=== PATIENT | male | born 1965 | race Caucasian/White ===

== ENCOUNTER 2016-05-03 14:30 | Inpatient (IN) | payer OTHER ==
[2016-05-03 17:50] VITALS: BMI 31.3
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
[2016-05-03] MEDS ORDERED: ACETAMINOPHEN 325 MG TABLET (FP) PO PRN (18:44)
[2016-05-03] MEDS ORDERED: diazePAM 5 MG TABLET PO ONE (18:44)
[2016-05-03] MEDS ORDERED: P-EPHED 60MG/TRIPROLIDI 2.5MG TABLET PO PRN (18:44)
[2016-05-03] MEDS ORDERED: diphenhydrAMINE HCL 50 MG CAPSULE PO PRN (18:44)
[2016-05-03] MEDS ORDERED: guaiFENesin/D-METHORPHAN HB 10 ML UNIT-DOSE CUPS PO PRN (18:44)
[2016-05-03] MEDS ORDERED: LOPERAMIDE HCL 2 MG CAPSULE PO PRN (18:44)
[2016-05-03] MEDS ORDERED: MENTHOL/PHENOL 1 EACH UD MM PRN (18:44)
[2016-05-03] MEDS ORDERED: METHADONE HCL 10 MG TABLET (FOR DETOX USE ONLY) PO ONE ×2 (18:44→23:00)
[2016-05-03] MEDS ORDERED: MAG HYDROX/AL HYDROX/SIMETH 30 ML UNIT-DOSE CUP PO PRN (18:44)
[2016-05-03] MEDS ORDERED: MAGNESIUM CITRATE 300 ML BOTTLE PO PRN (18:44)
[2016-05-03] MEDS ORDERED: MAGNESIUM HYDROX 2400MG/30ML ORAL SUSPENSION 30 ML CUP PO PRN (18:44)
[2016-05-03] MEDS ORDERED: IBUPROFEN 400 MG TABLET (FP) PO PRN (18:44)
[2016-05-03] MEDS ORDERED: ONDANSETRON *ODT* 4 MG TABLET SL PRN (18:49)
[2016-05-03] MEDS ORDERED: ALBUTEROL SO4 6.7 GM HFA INHALER IH PRN (18:51)
[2016-05-03] MEDS: THIAMINE HCL 100 MG TABLET (FP) PO SCH (22:27)
[2016-05-03] MEDS: diazePAM 5 MG TABLET PO SCH (22:27)
[2016-05-03 23:03] LABS: URINE APPEARANCE CLEAR; URINE BILIRUBIN NEGATIVE (NEGATIVE); URINE BLOOD NEGATIVE (NEGATIVE); URINE COLOR YELLOW; URINE GLUCOSE (UA) NEGATIVE (NEGATIVE); URINE KETONE NEGATIVE (NEGATIVE); URINE LEUK ESTERASE NEGATIVE (NEGATIVE); URINE NITRITE NEGATIVE (NEGATIVE); URINE PROTEIN NEGATIVE (NEGATIVE); URINE UROBILINOGEN NEGATIVE E.U./dl (0.2-1.0)
[2016-05-04] MEDS: diazePAM 5 MG TABLET PO SCH ×3 (06:36→22:12)
--- NOTE | 2016-05-04 09:36 | PN ---
[facility] CIWA - CIWA Score Nausea/Vomitin Muscle Tremors: 3 Anxiety: 3 Agitation: 2 Paroxysmal Sweats: 1-Minimal Palms Moist Orientation: 0-Oriented Tacttile Disturbances: 1-Very Mild Itch/Numbness Auditory Disturbances: 1-Very Mild Visual Disturbances: 1-Very Mild Sensitivity Headache: 2-Mild CIWA-Ar Total Score: 17 [facility] COWS - Scale Resting Pulse: 0= [place] 80 or Below Sweatin=Flushed/Facial Moisture Restless Observation: 3= Extraneous Movement Pupil Size: 1= Pupils >than Normal Bone or Joint Aches: 2= Severe Diffuse Aches Runny Nose/ Eye Tearin= Runny Nose/Eyes GI Upset > 30mins: 2= Nausea/Diarrhea Tremor Observation of Outstretched Hands: 2= Slight Tremor Visible Yawning Observation: 1= 1-2x During Session Anxiety or Irritability: 2=Irritable/Anxious Goose Flesh Skin: 0=Smooth Skin COWS Score: 17 [facility] Progress Note (SOAP) Subjective: ALERT,IRRITABLE,ANXIOUS,PAIN IN THE BODY,JOINT AND BACK,TREMOR Objective: 05/04/16 09:34 Vital Signs Temperature 98.2 F 05/04/16 09:31 Pulse Rate 72 05/04/16 09:31 Respiratory Rate 20 05/04/16 09:31 Blood Pressure 151/93 05/04/16 09:31 O2 Sat by Pulse Oximetry (%) EKG NSR,NORMAL ECG Laboratory Last Values Urine Color Yellow 05/03/16 22:00 Urine Appearance Clear 05/03/16 22:00 Urine pH 6.0 (5.0-8.0) 05/03/16 22:00 Ur Specific [place] 1.024 (1.001-1.035) 05/03/16 22:00 Urine Protein Negative (NEGATIVE) 05/03/16 22:00 Urine Glucose (UA) Negative (NEGATIVE) 05/03/16 22:00 Urine Ketones Negative (NEGATIVE) 05/03/16 22:00 Urine Blood Negative (NEGATIVE) 05/03/16 22:00 Urine Nitrite Negative (NEGATIVE) 05/03/16 22:00 Urine Bilirubin Negative (NEGATIVE) 05/03/16 22:00 Urine Urobilinogen Negative E.U./dl (0.2-1.0) 05/03/16 22:00 Ur Leukocyte Esterase Negative (NEGATIVE) 05/03/16 22:00 LABS PENDING Assessment: 05/04/16 09:35 WITHDRAWAL SYMPTOM Plan: CONTINUE DETOX
[2016-05-04] MEDS ORDERED: METHADONE HCL 10 MG TABLET (FOR DETOX USE ONLY) PO SCH (10:00)
[2016-05-04] MEDS: NICOTINE 14 MG/24 HOURS TOPICAL PATCH TD SCH (10:19)
[2016-05-04] MEDS: diazePAM 5 MG TABLET PO PRN (10:19)
[2016-05-04] MEDS: PRENATAL VITAMINS W/ FOLIC ACID TABLET (FP) PO SCH (10:19)
[2016-05-04 11:17] LABS: MCH 31.3 pg (25.7-33.7); MCHC 33.3 g/dl (32.0-35.9); MEAN CELL VOLUME 93.8 fl (80-96); MEAN PLT VOLUME 9.8 fl (7.5-11.1); PLATELET COUNT 170 K/MM3 (134-434); RDW 13.8 % (11.9-15.9); WHITE BLOOD COUNT 5.6 K/mm3 (4.0-10.0)
[2016-05-04 11:32] LABS: ALBUMIN 3.5 g/dl (3.4-5.0); ANION GAP 4 (8-16); CALCIUM 8.7 mg/dL (8.5-10.1); CO2 28 mmol/L (21-32); GLUCOSE,RANDOM 100 mg/dL (74-106)
[2016-05-04 11:35] LABS: ALK PHOS 101 U/L (45-117); BILIRUBIN,TOTAL 0.3 mg/dL (0.2-1.0); CREATININE 0.7 mg/dL (0.7-1.3); SGOT/AST 9 U/L (15-37); SGPT/ALT 19 U/L (12-78); TOT PROT 6.4 g/dl (6.4-8.2)
[2016-05-04 13:14] LABS: HIV 1 & 2 AB NEGATIVE; HIV 1 AGp24 NEGATIVE
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
[2016-05-04] MEDS: THIAMINE HCL 100 MG TABLET (FP) PO SCH (22:11)
[2016-05-04] MEDS: risperiDONE 2 MG TABLET PO SCH (22:11)
[2016-05-05] MEDS: diazePAM 5 MG TABLET PO PRN ×4 (00:53→19:19)
[2016-05-05] MEDS: NICOTINE POLACRILEX 2 MG GUM BC PRN ×3 (06:18→13:40)
[2016-05-05] MEDS ORDERED: ONDANSETRON *ODT* 4 MG TABLET SL PRN (09:03)
--- NOTE | 2016-05-05 09:30 | PN ---
[facility] CIWA - CIWA Score Nausea/Vomitin Muscle Tremors: 3 Anxiety: 3 Agitation: 3 Paroxysmal Sweats: 1-Minimal Palms Moist Orientation: 0-Oriented Tacttile Disturbances: 1-Very Mild Itch/Numbness Auditory Disturbances: 1-Very Mild Visual Disturbances: 1-Very Mild Sensitivity Headache: 2-Mild CIWA-Ar Total Score: 18 [facility] COWS - Scale Resting Pulse: 1= [place] 81-100 Sweatin= Chills/Flushing Restless Observation: 3= Extraneous Movement Pupil Size: 1= Pupils >than Normal Bone or Joint Aches: 2= Severe Diffuse Aches Runny Nose/ Eye Tearin= Runny Nose/Eyes GI Upset > 30mins: 3= Vomiting/Diarrhea Tremor Observation of Outstretched Hands: 2= Slight Tremor Visible Yawning Observation: 1= 1-2x During Session Anxiety or Irritability: 2=Irritable/Anxious Goose Flesh Skin: 0=Smooth Skin COWS Score: 18 S Progress Note (SOAP) Subjective: ALERT,IRRITABLE,ANXIOUS,NAUSEA,VOMITING,TREMOR,INTERRUPTED SLEEP Objective: 05/05/16 09:29 Vital Signs Temperature 96.8 F L 05/05/16 06:25 Pulse Rate 98 H 05/05/16 06:25 Respiratory Rate 18 05/05/16 06:25 Blood Pressure 135/93 05/05/16 06:25 O2 Sat by Pulse Oximetry (%) Laboratory Last Values WBC 5.6 K/mm3 (4.0-10.0) 05/04/16 06:30 RBC 4.16 M/mm3 (4.00-5.60) 05/04/16 06:30 Hgb 13.0 GM/dL (11.7-16.9) 05/04/16 06:30 Hct 39.0 % (35.4-49) 05/04/16 06:30 MCV 93.8 fl (80-96) 05/04/16 06:30 MCHC 33.3 g/dl (32.0-35.9) 05/04/16 06:30 RDW 13.8 % (11.9-15.9) 05/04/16 06:30 Plt Count 170 K/MM3 (134-434) 05/04/16 06:30 MPV 9.8 fl (7.5-11.1) 05/04/16 06:30 Sodium 139 mmol/L (136-145) 05/04/16 06:30 Potassium 4.0 mmol/L (3.5-5.1) 05/04/16 06:30 Chloride 107 mmol/L (98-107) 05/04/16 06:30 Carbon Dioxide 28 mmol/L (21-32) 05/04/16 06:30 Anion Gap 4 (8-16) L 05/04/16 06:30 BUN 19 mg/dL (7-18) H 05/04/16 06:30 Creatinine 0.7 mg/dL (0.7-1.3) 05/04/16 06:30 Creat Clearance w eGFR > 60 (>60) 05/04/16 06:30 Random Glucose 100 mg/dL (74-106) 05/04/16 06:30 Calcium 8.7 mg/dL (8.5-10.1) 05/04/16 06:30 Total Bilirubin 0.3 mg/dL (0.2-1.0) D 05/04/16 06:30 AST 9 U/L (15-37) L D 05/04/16 06:30 ALT 19 U/L (12-78) 05/04/16 06:30 Alkaline Phosphatase 101 U/L (45-117) 05/04/16 06:30 Total Protein 6.4 g/dl (6.4-8.2) 05/04/16 06:30 Albumin 3.5 g/dl (3.4-5.0) 05/04/16 06:30 Urine Color Yellow 05/03/16 22:00 Urine Appearance Clear 05/03/16 22:00 Urine pH 6.0 (5.0-8.0) 05/03/16 22:00 Ur Specific [place] 1.024 (1.001-1.035) 05/03/16 22:00 Urine Protein Negative (NEGATIVE) 05/03/16 22:00 Urine Glucose (UA) Negative (NEGATIVE) 05/03/16 22:00 Urine Ketones Negative (NEGATIVE) 05/03/16 22:00 Urine Blood Negative (NEGATIVE) 05/03/16 22:00 Urine Nitrite Negative (NEGATIVE) 05/03/16 22:00 Urine Bilirubin Negative (NEGATIVE) 05/03/16 22:00 Urine Urobilinogen Negative E.U./dl (0.2-1.0) 05/03/16 22:00 Ur Leukocyte Esterase Negative (NEGATIVE) 05/03/16 22:00 RPR Titer Nonreactive (NONREACTIVE) 05/04/16 06:30 HIV 1&2 Antibody Screen Negative 05/04/16 06:30 HIV P24 Antigen Negative 05/04/16 06:30 Assessment: 05/05/16 09:29 WITHDRAWAL SYMPTOM Plan: CONTINUE DETOX
[2016-05-05] MEDS: diazePAM 5 MG TABLET PO SCH ×2 (10:39→22:09)
[2016-05-05] MEDS: PRENATAL VITAMINS W/ FOLIC ACID TABLET (FP) PO SCH (10:39)
[2016-05-05] MEDS: NICOTINE 14 MG/24 HOURS TOPICAL PATCH TD SCH (10:40)
[2016-05-05] MEDS: METHADONE HCL 5 MG TABLET (FOR DETOX USE ONLY) PO SCH (10:40)
[2016-05-05] MEDS: risperiDONE 2 MG TABLET PO SCH (22:09)
[2016-05-05] MEDS: THIAMINE HCL 100 MG TABLET (FP) PO SCH (22:09)
--- NOTE | 2016-05-06 09:45 | PN ---
[facility] Progress Note (SOAP) Subjective: alert,irritable,anxious,interrupted sleep,pain in the body and back Objective: 05/06/16 09:44 Vital Signs Temperature 96.5 F L 05/06/16 09:41 Pulse Rate 95 H 05/06/16 09:41 Respiratory Rate 20 05/06/16 09:41 Blood Pressure 138/90 05/06/16 09:41 O2 Sat by Pulse Oximetry (%) Assessment: 05/06/16 09:44 withdrawal symptom Plan: continue detox
[2016-05-06] MEDS: PRENATAL VITAMINS W/ FOLIC ACID TABLET (FP) PO SCH (10:12)
[2016-05-06] MEDS: NICOTINE 14 MG/24 HOURS TOPICAL PATCH TD SCH (10:13)
[2016-05-06] MEDS: NICOTINE POLACRILEX 2 MG GUM BC PRN ×2 (10:13→17:02)
[2016-05-06] MEDS: METHADONE HCL 5 MG TABLET (FOR DETOX USE ONLY) PO SCH (10:13)
[2016-05-06] MEDS: diazePAM 5 MG TABLET PO SCH ×2 (10:13→22:14)
[2016-05-06] MEDS: diazePAM 5 MG TABLET PO PRN (17:01)
[2016-05-06] MEDS: risperiDONE 2 MG TABLET PO SCH (22:14)
[2016-05-06] MEDS: THIAMINE HCL 100 MG TABLET (FP) PO SCH (22:14)
[2016-05-07] MEDS ORDERED: METHADONE HCL 10 MG TABLET (FOR DETOX USE ONLY) PO SCH (10:00)
[2016-05-07] MEDS ORDERED: diazePAM 5 MG TABLET PO SCH (10:00)
[2016-05-07] MEDS: NICOTINE 14 MG/24 HOURS TOPICAL PATCH TD SCH (10:08)
[2016-05-07] MEDS: PRENATAL VITAMINS W/ FOLIC ACID TABLET (FP) PO SCH (10:08)
[2016-05-07] MEDS: NICOTINE POLACRILEX 2 MG GUM BC PRN ×3 (10:09→17:23)
--- NOTE | 2016-05-07 11:17 | PN ---
[facility] Progress Note (SOAP) Subjective: SWEATING,INTERRUPTED SLEEP,RESTLESS. Objective: 05/07/16 11:16 Vital Signs - 8 hr 05/07/16 05/07/16 05/07/16 03:30 06:22 10:27 Temperature 96.7 F L 97.2 F L Pulse Rate 86 86 Respiratory 16 18 20 Rate Blood Pressure 149/78 142/86 Laboratory Last Values WBC 5.6 K/mm3 (4.0-10.0) 05/04/16 06:30 RBC 4.16 M/mm3 (4.00-5.60) 05/04/16 06:30 Hgb 13.0 GM/dL (11.7-16.9) 05/04/16 06:30 Hct 39.0 % (35.4-49) 05/04/16 06:30 MCV 93.8 fl (80-96) 05/04/16 06:30 MCHC 33.3 g/dl (32.0-35.9) 05/04/16 06:30 RDW 13.8 % (11.9-15.9) 05/04/16 06:30 Plt Count 170 K/MM3 (134-434) 05/04/16 06:30 MPV 9.8 fl (7.5-11.1) 05/04/16 06:30 Sodium 139 mmol/L (136-145) 05/04/16 06:30 Potassium 4.0 mmol/L (3.5-5.1) 05/04/16 06:30 Chloride 107 mmol/L (98-107) 05/04/16 06:30 Carbon Dioxide 28 mmol/L (21-32) 05/04/16 06:30 Anion Gap 4 (8-16) L 05/04/16 06:30 BUN 19 mg/dL (7-18) H 05/04/16 06:30 Creatinine 0.7 mg/dL (0.7-1.3) 05/04/16 06:30 Creat Clearance w eGFR > 60 (>60) 05/04/16 06:30 Random Glucose 100 mg/dL (74-106) 05/04/16 06:30 Calcium 8.7 mg/dL (8.5-10.1) 05/04/16 06:30 Total Bilirubin 0.3 mg/dL (0.2-1.0) D 01/04/17 06:30 AST 9 U/L (15-37) L D 05/04/16 06:30 ALT 19 U/L (12-78) 05/04/16 06:30 Alkaline Phosphatase 101 U/L (45-117) 05/04/16 06:30 Total Protein 6.4 g/dl (6.4-8.2) 05/04/16 06:30 Albumin 3.5 g/dl (3.4-5.0) 05/04/16 06:30 Urine Color Yellow 05/03/16 22:00 Urine Appearance Clear 05/03/16 22:00 Urine pH 6.0 (5.0-8.0) 05/03/16 22:00 Ur Specific [place] 1.024 (1.001-1.035) 05/03/16 22:00 Urine Protein Negative (NEGATIVE) 05/03/16 22:00 Urine Glucose (UA) Negative (NEGATIVE) 05/03/16 22:00 Urine Ketones Negative (NEGATIVE) 05/03/16 22:00 Urine Blood Negative (NEGATIVE) 05/03/16 22:00 Urine Nitrite Negative (NEGATIVE) 05/03/16 22:00 Urine Bilirubin Negative (NEGATIVE) 05/03/16 22:00 Urine Urobilinogen Negative E.U./dl (0.2-1.0) 05/03/16 22:00 Ur Leukocyte Esterase Negative (NEGATIVE) 05/03/16 22:00 RPR Titer Nonreactive (NONREACTIVE) 05/04/16 06:30 HIV 1&2 Antibody Screen Negative 05/04/16 06:30 HIV P24 Antigen Negative 05/04/16 06:30 LABS NOTED Assessment: 05/07/16 11:16 WITHDRAWAL SX Plan: CONTINUE DETOX
[2016-05-07] MEDS: THIAMINE HCL 100 MG TABLET (FP) PO SCH (23:18)
[2016-05-07] MEDS: risperiDONE 2 MG TABLET PO SCH (23:18)
[2016-05-08] MEDS: NICOTINE POLACRILEX 2 MG GUM BC PRN (05:11)
[2016-05-08] MEDS ORDERED: METHADONE HCL 5 MG TABLET (FOR DETOX USE ONLY) PO SCH (06:00)
[2016-05-08 06:11] VITALS: BP 155/83; PULSE 68; TEMP 96.8
--- NOTE | 2016-05-08 11:48 | DS ---
[facility] Detox Discharge Summary Admission Date: 05/03/16 Discharge Date: 05/08/16 - History Present History: Alcohol Dependence Pertinent Past History: Asthma HTN - Physical Exam Results Vital Signs: Vital Signs Temperature 96.8 F L 05/08/16 06:11 Pulse Rate 68 05/08/16 06:11 Respiratory Rate 18 05/08/16 06:11 Blood Pressure 155/83 05/08/16 06:11 O2 Sat by Pulse Oximetry (%) Pertinent Admission Physical Exam Findings: Withdrawal symptoms Laboratory Tests 05/03/16 05/04/16 05/04/16 22:00 06:30 06:30 WBC 5.6 RBC 4.16 Hgb 13.0 Hct 39.0 MCV 93.8 MCHC 33.3 RDW 13.8 Plt Count 170 MPV 9.8 Sodium 139 Potassium 4.0 Chloride 107 Carbon Dioxide 28 Anion Gap 4 L BUN 19 H Creatinine 0.7 Creat Clearance w eGFR > 60 Random Glucose 100 Calcium 8.7 Total Bilirubin 0.3 D AST 9 L D ALT 19 Alkaline Phosphatase 101 Total Protein 6.4 Albumin 3.5 Urine Color Yellow Urine Appearance Clear Urine pH 6.0 Ur Specific [place] 1.024 Urine Protein Negative Urine Glucose (UA) Negative Urine Ketones Negative Urine Blood Negative Urine Nitrite Negative Urine Bilirubin Negative Urine Urobilinogen Negative Ur Leukocyte Esterase Negative RPR Titer HIV 1&2 Antibody Screen HIV P24 Antigen 05/04/16 05/04/16 06:30 06:30 WBC RBC Hgb Hct MCV MCHC RDW Plt Count MPV Sodium Potassium Chloride Carbon Dioxide Anion Gap BUN Creatinine Creat Clearance w eGFR Random Glucose Calcium Total Bilirubin AST ALT Alkaline Phosphatase Total Protein Albumin Urine Color Urine Appearance Urine pH Ur Specific [place] Urine Protein Urine Glucose (UA) Urine Ketones Urine Blood Urine Nitrite Urine Bilirubin Urine Urobilinogen Ur Leukocyte Esterase RPR Titer Nonreactive HIV 1&2 Antibody Screen Negative HIV P24 Antigen Negative Labs noted - Treatment Hospital Course: Detox Protocol Followed, Detoxed Safely, Responded well, Discharged Condition Good - Medication Discharge Medications: Ambulatory Orders Risperidone [Risperdal -] 4 mg PO HS #30 tablet 09/01/15 Risperidone [Risperdal -] 3 mg PO DAILY #30 tablet 05/04/16 - Diagnosis (1) Alcohol dependence with uncomplicated withdrawal Status: Acute (2) HTN (hypertension) Status: Acute (3) Asthma, mild intermittent Status: Acute - AMA Did Patient Leave Against Medical Advice: No
== END 2016-05-08 09:34 | disposition home or self-care (01) | DRG 773 ==
LOC: YASAS 14:30 → Y3N 19:49
PROVIDERS: ADMIT Internal Medicine; ATTEND Internal Medicine
PROC: HZ2ZZZZ Detoxification Services for Substance Abuse Treatment (ICD-10-PCS; principal; 2016-05-03)
DX: F11.23 Opioid dependence with withdrawal (principal); F10.230 Alcohol dependence with withdrawal, uncomplicated; F17.210 Nicotine dependence, cigarettes, uncomplicated; F20.0 Paranoid schizophrenia; F19.24 Other psychoactive substance dependence with psychoactive substance-induced mood disorder; I10 Essential (primary) hypertension; J45.20 Mild intermittent asthma, uncomplicated; Z91.5 Personal history of self-harm
CPT/HCPCS: 36415; 80053; 81003; 85027; 86593; 87389; 93005; 93010

== ENCOUNTER 2018-08-01 12:00 | Inpatient (IN) | payer OTHER ==
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
[2018-08-01] MEDS ORDERED: BACLOFEN 10 MG TABLET (FP) PO PRN (14:02)
[2018-08-01] MEDS ORDERED: cloNIDine HCL 0.1 MG TABLET PO PRN (14:02)
[2018-08-01] MEDS ORDERED: DICYCLOMINE HCL 10 MG CAPSULE PO PRN (14:02)
[2018-08-01] MEDS ORDERED: hydrOXYzine PAMOATE 25 MG CAPSULE (FP) PO PRN (14:02)
[2018-08-01] MEDS ORDERED: IBUPROFEN 400 MG TABLET (FP) PO PRN (14:02)
[2018-08-01] MEDS ORDERED: MELATONIN 5 MG TABLETS PO PRN (14:02)
[2018-08-01] MEDS ORDERED: P-EPHED 60MG/TRIPROLIDI 2.5MG TABLET PO PRN (14:02)
[2018-08-01] MEDS ORDERED: ONDANSETRON *ODT* 4 MG TABLET SL PRN (14:02)
[2018-08-01] MEDS ORDERED: MAGNESIUM CITRATE 300 ML BOTTLE PO PRN (14:02)
[2018-08-01] MEDS ORDERED: MENTHOL/PHENOL 1 EACH UD MM PRN (14:02)
[2018-08-01] MEDS ORDERED: BISMUTH SUBSALICYLATE 524 MG/30 ML UD PO PRN (14:02)
[2018-08-01] MEDS ORDERED: ACETAMINOPHEN 325 MG TABLET (FP) PO PRN ×2 (14:02)
[2018-08-01] MEDS ORDERED: MAGNESIUM HYDROX 2400MG/30ML ORAL SUSPENSION 30 ML CUP PO PRN (14:02)
[2018-08-01] MEDS ORDERED: MAG HYDROX/AL HYDROX/SIMETH 30 ML UNIT-DOSE CUP PO PRN (14:02)
[2018-08-01] MEDS ORDERED: METHADONE HCL 10 MG TABLET (FOR DETOX USE ONLY) PO ONE ×2 (14:07→23:00)
[2018-08-01] MEDS ORDERED: ALBUTEROL SO4 2.5/IPRATROPIUM 0.5 INH SOL 3 ML VIAL.NEB. NEB ONE (15:03)
[2018-08-01] MEDS ORDERED: ALBUTEROL SO4 2.5/IPRATROPIUM 0.5 INH SOL 3 ML VIAL.NEB. NEB PRN (15:03)
[2018-08-01] MEDS ORDERED: ALBUTEROL SO4 8 GM HFA INHALER IH PRN (15:03)
--- NOTE | 2018-08-01 15:15 | EKG ---
Test Reason : Blood Pressure : / mmHG Vent. Rate : 063 BPM Atrial Rate : 063 BPM P-R Int : 138 ms QRS Dur : 100 ms QT Int : 408 ms P-R-T Axes : 046 050 036 degrees QTc Int : 417 ms NORMAL SINUS RHYTHM INCOMPLETE RIGHT BUNDLE BRANCH BLOCK BORDERLINE ECG NO PREVIOUS ECGS AVAILABLE Confirmed by TOMEKA HASSAN, TULIO ([id number]) on 08/01/2018 3:14:47 PM Referred By: Confirmed By:TULIO ECKERT MD
[2018-08-01 17:03] LABS: HEMATOCRIT 39.2 % (35.4-49); HEMOGLOBIN 13.2 GM/dL (11.7-16.9); MCH 31.7 pg (25.7-33.7); MCHC 33.6 g/dl (32.0-35.9); MEAN CELL VOLUME 94.4 fl (80-96); PLATELET COUNT 190 K/MM3 (134-434); RBC 4.15 M/mm3 (4.00-5.60); RDW 13.7 % (11.9-15.9); WHITE BLOOD COUNT 5.7 K/mm3 (4.0-10.0)
[2018-08-01 17:14] LABS: ALBUMIN 3.7 g/dl (3.4-5.0); ALK PHOS 127 U/L (45-117); BILIRUBIN,TOTAL 0.3 mg/dL (0.2-1); BLOOD UREA NITROGEN 24 mg/dL (7-18); CALCIUM 9.3 mg/dL (8.5-10.1); CHLORIDE 105 mmol/L (98-107); CO2 28 mmol/L (21-32); CREATININE 0.7 mg/dL (0.55-1.3); GLUCOSE,RANDOM 95 mg/dL (74-106); POTASSIUM 4.3 mmol/L (3.5-5.1); SGOT/AST 14 U/L (15-37); SGPT/ALT 32 U/L (13-61); SODIUM 139 mmol/L (136-145); TOT PROT 7.4 g/dl (6.4-8.2)
[2018-08-01 17:18] LABS: ANION GAP 7 MMOL/L (8-16)
[2018-08-01] MEDS: THIAMINE HCL 100 MG TABLET (FP) PO SCH (22:17)
[2018-08-01] MEDS: TOLNAFTATE 1% CREAM 15 GM TUBE TP SCH (22:19)
--- NOTE | 2018-08-02 09:23 | PN ---
[facility] COWS - Scale Resting Pulse: 0= [place] 80 or Below Sweatin= Chills/Flushing Restless Observation: 1= Difficult to Sit Still Pupil Size: 1= Pupils >than Normal Bone or Joint Aches: 2= Severe Diffuse Aches Runny Nose/ Eye Tearin= Runny Nose/Eyes GI Upset > 30mins: 2= Nausea/Diarrhea Tremor Observation of Outstretched Hands: 2= Slight Tremor Visible Yawning Observation: 1= 1-2x During Session Anxiety or Irritability: 2=Irritable/Anxious Goose Flesh Skin: 0=Smooth Skin COWS Score: 14 S Progress Note (SOAP) Subjective: alert,irritable,anxious,interrupted sleep,tremor,pain in the body and back Objective: 08/02/18 09:20 Vital Signs Temperature 97.9 F 08/02/18 07:28 Pulse Rate 55 L 08/02/18 07:28 Respiratory Rate 18 08/02/18 07:28 Blood Pressure 141/84 08/02/18 07:28 O2 Sat by Pulse Oximetry (%) ekg nsr, no chest pain,no sob,no dizziness Laboratory Last Values WBC 5.7 K/mm3 (4.0-10.0) 08/01/18 13:30 RBC 4.15 M/mm3 (4.00-5.60) 08/01/18 13:30 Hgb 13.2 GM/dL (11.7-16.9) 08/01/18 13:30 Hct 39.2 % (35.4-49) 08/01/18 13:30 MCV 94.4 fl (80-96) 08/01/18 13:30 MCH 31.7 pg (25.7-33.7) 08/01/18 13:30 MCHC 33.6 g/dl (32.0-35.9) 08/01/18 13:30 RDW 13.7 % (11.9-15.9) 08/01/18 13:30 Plt Count 190 K/MM3 (134-434) 08/01/18 13:30 MPV 10.0 fl (7.5-11.1) 08/01/18 13:30 Sodium 139 mmol/L (136-145) 08/01/18 13:30 Potassium 4.3 mmol/L (3.5-5.1) 08/01/18 13:30 Chloride 105 mmol/L (98-107) 08/01/18 13:30 Carbon Dioxide 28 mmol/L (21-32) 08/01/18 13:30 Anion Gap 7 MMOL/L (8-16) L 08/01/18 13:30 BUN 24 mg/dL (7-18) H 08/01/18 13:30 Creatinine 0.7 mg/dL (0.55-1.3) 08/01/18 13:30 Creat Clearance w eGFR 117.97 (>60) 08/01/18 13:30 Random Glucose 95 mg/dL (74-106) 08/01/18 13:30 Calcium 9.3 mg/dL (8.5-10.1) 08/01/18 13:30 Total Bilirubin 0.3 mg/dL (0.2-1) 08/01/18 13:30 AST 14 U/L (15-37) L 08/01/18 13:30 ALT 32 U/L (13-61) 08/01/18 13:30 Alkaline Phosphatase 127 U/L (45-117) H 08/01/18 13:30 Total Protein 7.4 g/dl (6.4-8.2) 08/01/18 13:30 Albumin 3.7 g/dl (3.4-5.0) 08/01/18 13:30 RPR Titer Nonreactive (NONREACTIVE) 08/01/18 13:30 Assessment: 08/02/18 09:22 withdrawal symptom Plan: continue detox,encourage oral fluid
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
[2018-08-02] MEDS ORDERED: METHADONE HCL 10 MG TABLET (FOR DETOX USE ONLY) PO ONE (10:00)
[2018-08-02] MEDS: PRENATAL VITAMINS W/ FOLIC ACID TABLET (FP) PO SCH (10:30)
[2018-08-02] MEDS: TOLNAFTATE 1% CREAM 15 GM TUBE TP SCH ×2 (10:30→22:26)
[2018-08-02] MEDS: NICOTINE 21 MG/24 HOURS TOPICAL PATCH TD SCH (10:31)
[2018-08-02] MEDS: NICOTINE POLACRILEX 4 MG GUM BUC PRN ×2 (10:31→18:37)
[2018-08-02] MEDS ORDERED: hydrOXYzine PAMOATE 50 MG CAPSULE (FP) PO PRN (14:02)
[2018-08-02] MEDS: THIAMINE HCL 100 MG TABLET (FP) PO SCH (22:24)
[2018-08-02] MEDS: risperiDONE 1 MG TABLET (FP) PO SCH (22:24)
[2018-08-03 09:27] VITALS: BP 148/86; PULSE 69; TEMP 98.7
--- NOTE | 2018-08-03 09:47 | PN ---
[facility] COWS - Scale Resting Pulse: 0= [place] 80 or Below Sweatin= Chills/Flushing Restless Observation: 1= Difficult to Sit Still Pupil Size: 1= Pupils >than Normal Bone or Joint Aches: 2= Severe Diffuse Aches Runny Nose/ Eye Tearin= Runny Nose/Eyes GI Upset > 30mins: 2= Nausea/Diarrhea Tremor Observation of Outstretched Hands: 2= Slight Tremor Visible Yawning Observation: 1= 1-2x During Session Anxiety or Irritability: 2=Irritable/Anxious Goose Flesh Skin: 0=Smooth Skin COWS Score: 14 S Progress Note (SOAP) Subjective: alert,irritable,anxious,interrupted sleep,pain in the body and back Objective: 08/03/18 09:46 Vital Signs Temperature 98.7 F 08/03/18 09:27 Pulse Rate 69 08/03/18 09:27 Respiratory Rate 18 08/03/18 09:27 Blood Pressure 148/86 08/03/18 09:27 O2 Sat by Pulse Oximetry (%) 08/03/18 09:46 Laboratory Last Values WBC 5.7 K/mm3 (4.0-10.0) 08/01/18 13:30 RBC 4.15 M/mm3 (4.00-5.60) 08/01/18 13:30 Hgb 13.2 GM/dL (11.7-16.9) 08/01/18 13:30 Hct 39.2 % (35.4-49) 08/01/18 13:30 MCV 94.4 fl (80-96) 08/01/18 13:30 MCH 31.7 pg (25.7-33.7) 08/01/18 13:30 MCHC 33.6 g/dl (32.0-35.9) 08/01/18 13:30 RDW 13.7 % (11.9-15.9) 08/01/18 13:30 Plt Count 190 K/MM3 (134-434) 08/01/18 13:30 MPV 10.0 fl (7.5-11.1) 08/01/18 13:30 Sodium 139 mmol/L (136-145) 08/01/18 13:30 Potassium 4.3 mmol/L (3.5-5.1) 08/01/18 13:30 Chloride 105 mmol/L (98-107) 08/01/18 13:30 Carbon Dioxide 28 mmol/L (21-32) 08/01/18 13:30 Anion Gap 7 MMOL/L (8-16) L 08/01/18 13:30 BUN 24 mg/dL (7-18) H 08/01/18 13:30 Creatinine 0.7 mg/dL (0.55-1.3) 08/01/18 13:30 Creat Clearance w eGFR 117.97 (>60) 08/01/18 13:30 Random Glucose 95 mg/dL (74-106) 08/01/18 13:30 Calcium 9.3 mg/dL (8.5-10.1) 08/01/18 13:30 Total Bilirubin 0.3 mg/dL (0.2-1) 08/01/18 13:30 AST 14 U/L (15-37) L 08/01/18 13:30 ALT 32 U/L (13-61) 08/01/18 13:30 Alkaline Phosphatase 127 U/L (45-117) H 08/01/18 13:30 Total Protein 7.4 g/dl (6.4-8.2) 08/01/18 13:30 Albumin 3.7 g/dl (3.4-5.0) 08/01/18 13:30 RPR Titer Nonreactive (NONREACTIVE) 08/01/18 13:30 Assessment: 08/03/18 09:47 withdrawal symptom Plan: continue detox
[2018-08-03] MEDS ORDERED: METHADONE HCL 10 MG TABLET (FOR DETOX USE ONLY) PO ONE (10:00)
[2018-08-03] MEDS: PRENATAL VITAMINS W/ FOLIC ACID TABLET (FP) PO SCH (10:13)
[2018-08-03] MEDS: TOLNAFTATE 1% CREAM 15 GM TUBE TP SCH (10:13)
[2018-08-03] MEDS: risperiDONE 1 MG TABLET (FP) PO SCH (10:13)
[2018-08-03] MEDS: NICOTINE 21 MG/24 HOURS TOPICAL PATCH TD SCH (10:13)
[2018-08-03] MEDS ORDERED: FLU VACCINE QUAD 60 MCG/0.5 ML (MDV 18-19) IM ONE (12:00)
[2018-08-04] MEDS ORDERED: METHADONE HCL 10 MG TABLET (FOR DETOX USE ONLY) PO ONE (10:00)
[2018-08-05] MEDS ORDERED: METHADONE HCL 5 MG TABLET (FOR DETOX USE ONLY) PO ONE (06:00)
== END 2018-08-03 10:29 | disposition left against medical advice (07) | DRG 770 ==
LOC: YASAS 12:00 → Y6N 14:10
PROVIDERS: ADMIT Surgery; ATTEND Surgery
PROC: HZ2ZZZZ Detoxification Services for Substance Abuse Treatment (ICD-10-PCS; principal; 2018-08-01)
DX: F11.23 Opioid dependence with withdrawal (principal); F17.213 Nicotine dependence, cigarettes, with withdrawal; F20.0 Paranoid schizophrenia; Z91.5 Personal history of self-harm
CPT/HCPCS: 36415; 80053; 85027; 86593; 93005; 93010; 94640; J2794

== ENCOUNTER 2019-04-03 15:37 | Inpatient (IN) | payer OTHER ==
[2019-04-03 17:34] VITALS: BMI 38.4
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
[2019-04-03] MEDS ORDERED: IBUPROFEN 400 MG TABLET (FP) PO PRN (19:37)
[2019-04-03] MEDS ORDERED: MENTHOL/PHENOL 1 EACH UD MM PRN (19:37)
[2019-04-03] MEDS ORDERED: BISMUTH SUBSALICYLATE 524 MG/30 ML UD PO PRN (19:37)
[2019-04-03] MEDS ORDERED: MAG HYDROX/AL HYDROX/SIMETH 30 ML UNIT-DOSE CUP PO PRN (19:37)
[2019-04-03] MEDS ORDERED: P-EPHED 60MG/TRIPROLIDI 2.5MG TABLET PO PRN (19:37)
[2019-04-03] MEDS ORDERED: guaiFENesin 200 MG/10 ML 10 ML UNIT-DOSE CUPS PO PRN (19:37)
[2019-04-03] MEDS ORDERED: MAGNESIUM HYDROX 2400MG/30ML ORAL SUSPENSION 30 ML CUP PO PRN (19:37)
[2019-04-03] MEDS ORDERED: NICOTINE POLACRILEX 2 MG GUM BUC PRN (19:37)
[2019-04-03] MEDS ORDERED: MAGNESIUM CITRATE 300 ML BOTTLE PO PRN (19:37)
[2019-04-03] MEDS ORDERED: METHOCARBAMOL 500 MG TABLET PO PRN (19:37)
[2019-04-03] MEDS ORDERED: hydrOXYzine PAMOATE 25 MG CAPSULE (FP) PO PRN (19:37)
[2019-04-03] MEDS ORDERED: ACETAMINOPHEN 325 MG TABLET (FP) PO PRN ×2 (19:37)
[2019-04-03] MEDS ORDERED: cloNIDine HCL 0.1 MG TABLET PO PRN (19:38)
[2019-04-03] MEDS ORDERED: MELATONIN 5 MG TABLETS PO PRN (22:00)
[2019-04-03] MEDS ORDERED: THIAMINE HCL 100 MG TABLET (FP) PO SCH (22:00)
[2019-04-03] MEDS ORDERED: METHADONE HCL 10 MG TABLET (FOR DETOX USE ONLY) PO ONE (23:00)
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
[2019-04-04 09:54] LABS: HEMATOCRIT 39.6 % (35.4-49); HEMOGLOBIN 13.2 GM/dL (11.7-16.9); MCH 30.7 pg (25.7-33.7); MCHC 33.5 g/dl (32.0-35.9); MEAN CELL VOLUME 91.8 fl (80-96); MEAN PLT VOLUME 9.7 fl (7.5-11.1); PLATELET COUNT 189 K/MM3 (134-434); RBC 4.31 M/mm3 (4.00-5.60); RDW 14.1 % (11.9-15.9); WHITE BLOOD COUNT 6.4 K/mm3 (4.0-10.0)
[2019-04-04] MEDS ORDERED: PRENATAL VITAMINS W/ FOLIC ACID TABLET (FP) PO SCH (10:00)
[2019-04-04] MEDS ORDERED: METHADONE HCL 5 MG TABLET (FOR DETOX USE ONLY) PO ONE (10:00)
[2019-04-04 10:09] LABS: ALBUMIN 3.5 g/dl (3.4-5.0); BILIRUBIN,TOTAL 0.3 mg/dL (0.2-1); BLOOD UREA NITROGEN 27.6 mg/dL (7-18); CALCIUM 9.2 mg/dL (8.5-10.1); CREATININE 0.7 mg/dL (0.55-1.3); POTASSIUM 4.6 mmol/L (3.5-5.1)
[2019-04-04] MEDS ORDERED: LORazepam 1 MG TABLET PO PRN (10:49)
[2019-04-04] MEDS: LORazepam 2 MG TABLET PO SCH ×2 (11:04→18:09)
--- NOTE | 2019-04-04 11:26 | PN ---
S CIWA - CIWA Score Nausea/Vomitin Muscle Tremors: 3 Anxiety: 2 Agitation: 2 Paroxysmal Sweats: No Perspiration Orientation: 1-Uncertain about Date Tacttile Disturbances: 1-Very Mild Itch/Numbness Auditory Disturbances: 0-None Visual Disturbances: 0-None Headache: 2-Mild CIWA-Ar Total Score: 13 [facility] COWS - Scale Resting Pulse: 0= CT 80 or Below Sweatin= No chills or Flushing Restless Observation: 1= Difficult to Sit Still Pupil Size: 1= Pupils >than Normal Bone or Joint Aches: 1= Mild Discomfort Runny Nose/ Eye Tearin= Nasal Congestion GI Upset > 30mins: 1= Stomach Cramp Tremor Observation of Outstretched Hands: 2= Slight Tremor Visible Yawning Observation: 1= 1-2x During Session Anxiety or Irritability: 2=Irritable/Anxious Goose Flesh Skin: 0=Smooth Skin COWS Score: 10 [facility] Progress Note (SOAP) Subjective: alert,irritable,anxious,interrupted sleep,tremor,pain in the body and back, nausea,stated has been drinking heavily daily Objective: 04/04/19 11:23 Vital Signs Temperature 97.3 F L 04/04/19 09:32 Pulse Rate 64 04/04/19 09:32 Respiratory Rate 18 04/04/19 09:32 Blood Pressure 133/82 04/04/19 09:32 O2 Sat by Pulse Oximetry (%) Laboratory Last Values WBC 6.4 K/mm3 (4.0-10.0) 04/04/19 08:00 RBC 4.31 M/mm3 (4.00-5.60) 04/04/19 08:00 Hgb 13.2 GM/dL (11.7-16.9) 04/04/19 08:00 Hct 39.6 % (35.4-49) 04/04/19 08:00 MCV 91.8 fl (80-96) 04/04/19 08:00 MCH 30.7 pg (25.7-33.7) 04/04/19 08:00 MCHC 33.5 g/dl (32.0-35.9) 04/04/19 08:00 RDW 14.1 % (11.9-15.9) 04/04/19 08:00 Plt Count 189 K/MM3 (134-434) 04/04/19 08:00 MPV 9.7 fl (7.5-11.1) 04/04/19 08:00 Sodium 140 mmol/L (136-145) 04/04/19 08:00 Potassium 4.6 mmol/L (3.5-5.1) 04/04/19 08:00 Chloride 106 mmol/L (98-107) 04/04/19 08:00 Carbon Dioxide 29 mmol/L (21-32) 04/04/19 08:00 Anion Gap 5 MMOL/L (8-16) L 04/04/19 08:00 BUN 27.6 mg/dL (7-18) H 04/04/19 08:00 Creatinine 0.7 mg/dL (0.55-1.3) 04/04/19 08:00 Est GFR (CKD-EPI)AfAm 124.00 04/04/19 08:00 Est GFR (CKD-EPI)NonAf 106.99 04/04/19 08:00 Random Glucose 96 mg/dL (74-106) 04/04/19 08:00 Calcium 9.2 mg/dL (8.5-10.1) 04/04/19 08:00 Total Bilirubin 0.3 mg/dL (0.2-1) 04/04/19 08:00 AST 14 U/L (15-37) L 04/04/19 08:00 ALT 33 U/L (13-61) 04/04/19 08:00 Alkaline Phosphatase 116 U/L (45-117) 04/04/19 08:00 Total Protein 7.0 g/dl (6.4-8.2) 04/04/19 08:00 Albumin 3.5 g/dl (3.4-5.0) 04/04/19 08:00 RPR Titer Nonreactive (NONREACTIVE) 04/04/19 08:00 Assessment: 04/04/19 11:24 withdrawal symptom Plan: continue detox methadone and ativan regimen,patient is drinking heavily daily, he is allergic to diazepam but has no problem with ativan
--- NOTE | 2019-04-04 11:35 | PN ---
[facility] Progress Note Note: 27.6 possible dehydration,encourage oral fluid,repeat bmp in am
[2019-04-04 13:09] VITALS: BP 128/68; PULSE 62; TEMP 98.2
--- NOTE | 2019-04-04 18:20 | DS ---
[facility] Detox Discharge Summary Admission Date: 04/03/19 Discharge Date: 04/04/19 - History Present History: Alcohol Dependence, Opioid Dependence Additional Comments: Patient left AMA. No SI/HI. Patient c/o of opioid withdrawal symptoms stomach cramps and nausea. Patient Aox3 no cute distress, ambulating in the unit. Comfort meds offered to patient, but patient insisted on leaving . Patient advised on the risk of interrupting treatment which include relapse, overdose and . Patient advised follow up with local emergency room department if symptoms worsen. Patient given outpatient referral. Patient verbalizes understanding. Pertinent Past History: PMHX: HTN and Asthma - Physical Exam Results Vital Signs: Vital Signs Temperature 98.2 F 04/04/19 13:09 Pulse Rate 62 04/04/19 13:09 Respiratory Rate 19 04/04/19 13:09 Blood Pressure 128/68 04/04/19 13:09 O2 Sat by Pulse Oximetry (%) - Treatment Hospital Course: Detox Protocol Followed, Detoxed Safely, Responded well, Discharged Condition Good, Rehab Referral Accepted - Medication Discharge Medications: Ambulatory Orders Risperidone [Risperdal -] 4 mg PO HS #30 tablet 09/01/15 - Diagnosis (1) Alcohol dependence Current Visit: Yes Status: Acute (2) Cocaine abuse Current Visit: Yes Status: Acute (3) HTN (hypertension) Current Visit: Yes Status: Acute (4) Nicotine dependence Current Visit: Yes Status: Chronic Qualifiers: Nicotine product type: cigarettes Substance use status: uncomplicated Qualified Code(s): F17.210 - Nicotine dependence, cigarettes, uncomplicated (5) Asthma, mild intermittent Current Visit: No Status: Chronic Qualifiers: Asthma complication type: unspecified Qualified Code(s): J45.20 - Mild intermittent asthma, uncomplicated - AMA Did Patient Leave Against Medical Advice: Yes
[2019-04-04] MEDS ORDERED: risperiDONE 2 MG TABLET PO SCH (22:00)
[2019-04-05] MEDS ORDERED: METHADONE HCL 10 MG TABLET (FOR DETOX USE ONLY) PO ONE (10:00)
[2019-04-06] MEDS ORDERED: LORazepam 1 MG TABLET PO SCH (05:00)
[2019-04-06] MEDS ORDERED: METHADONE HCL 5 MG TABLET (FOR DETOX USE ONLY) PO ONE (06:00)
[2019-04-07] MEDS ORDERED: LORazepam 0.5 MG TABLET PO PRN
[2019-04-07] MEDS ORDERED: LORazepam 0.5 MG TABLET PO SCH (05:00)
[2019-04-08] MEDS ORDERED: LORazepam 0.5 MG TABLET PO ONE (05:00)
== END 2019-04-04 18:40 | disposition left against medical advice (07) | DRG 770 ==
LOC: YASAS 15:37 → Y6N 19:46
PROVIDERS: ADMIT Allergy & Immunology; ATTEND Allergy & Immunology
PROC: HZ2ZZZZ Detoxification Services for Substance Abuse Treatment (ICD-10-PCS; principal; 2019-04-03)
DX: F11.23 Opioid dependence with withdrawal (principal); F10.230 Alcohol dependence with withdrawal, uncomplicated; F14.10 Cocaine abuse, uncomplicated; F17.210 Nicotine dependence, cigarettes, uncomplicated; F20.0 Paranoid schizophrenia; F19.282 Other psychoactive substance dependence with psychoactive substance-induced sleep disorder; I10 Essential (primary) hypertension; J45.20 Mild intermittent asthma, uncomplicated; M54.5 Low back pain; G89.29 Other chronic pain; Z88.8 Allergy status to other drugs, medicaments and biological substances; Z91.5 Personal history of self-harm; Z90.79 Acquired absence of other genital organ(s)
CPT/HCPCS: 36415; 80053; 85027; 86593; J0735

== ENCOUNTER 2025-01-13 11:14 | Inpatient (IN) | payer OTHER ==
[2025-01-13 12:09] VITALS: BMI 37.1
[2025-01-13] MEDS ORDERED: POLYETHYLENE GLYCOL (HEALTHYLAX) 3350 17 GM PACKET PO PRN (12:09)
[2025-01-13] MEDS ORDERED: IBUPROFEN 400 MG TABLET (FP) PO PRN (12:09)
[2025-01-13] MEDS ORDERED: MAGNESIUM HYDROX 2400MG/30ML ORAL SUSPENSION 30 ML CUP PO PRN (12:09)
[2025-01-13] MEDS ORDERED: NALOXONE (NARCAN) HCL 4 MG/0.1 ML SPRAY NS PRN (12:09)
[2025-01-13] MEDS ORDERED: ONDANSETRON *ODT* 4 MG TABLET SL PRN (12:09)
[2025-01-13] MEDS ORDERED: guaiFENesin 600 MG TABLET.ER (FP) PO PRN (12:09)
[2025-01-13] MEDS ORDERED: BENZONATATE 200 MG CAPSULE PO PRN (12:09)
[2025-01-13] MEDS ORDERED: hydrOXYzine PAMOATE 25 MG CAPSULE (FP) PO PRN (12:09)
[2025-01-13] MEDS ORDERED: BENZOCAINE/MENTHOL (CHLORASEPTIC ) LOZENGE MM PRN (12:09)
[2025-01-13] MEDS ORDERED: DICYCLOMINE HCL 10 MG CAPSULE PO PRN (12:09)
[2025-01-13] MEDS: PRENATAL VITAMINS W/ FOLIC ACID TABLET (FP) PO SCH ×2 (14:09→14:13)
[2025-01-13] MEDS ORDERED: PRENATAL VITAMINS W/ FOLIC ACID TABLET (FP) PO ONE (14:11)
[2025-01-13] MEDS: THIAMINE 100 MG TABLET PO SCH (22:01)
[2025-01-13] MEDS: MELATONIN 5 MG TABLETS PO SCH (22:01)
[2025-01-14] MEDS: NICOTINE POLACRILEX 4 MG GUM BUC PRN (09:32)
[2025-01-14] MEDS: BISMUTH SUBSALICYLATE 524 MG/30 ML PO PRN (09:33)
[2025-01-14 10:39] LABS: MCHC 31.9 g/dl (32.3-36.5); MEAN CELL VOLUME 92.3 fl (79.0-92.2); MEAN PLT VOLUME 11.4 fl (9.4-12.4); RDW 13.3 % (12.2-16.1)
[2025-01-14 11:02] LABS: GLUCOSE,RANDOM 93.0 mg/dL (74-106)
[2025-01-14 11:03] LABS: CO2 26.0 mmol/L (21-32); TOT PROT 7.2 g/dl (6.4-8.2)
[2025-01-14 11:05] LABS: ALK PHOS 131.0 U/L (40-150)
[2025-01-14 11:08] LABS: CREATININE 0.51 mg/dL (0.55-1.3); SGOT/AST 19.0 U/L (5-34); SGPT/ALT 18.0 U/L (0-55)
[2025-01-14] MEDS: amLODIPine BESYLATE 5 MG TABLET (FP) PO SCH (17:25)
[2025-01-14] MEDS: METHOCARBAMOL 500 MG TABLET PO PRN (17:26)
[2025-01-14] MEDS: ACETAMINOPHEN 325 MG TABLET (FP) PO PRN (19:18)
[2025-01-15] MEDS: IBUPROFEN 600 MG TABLET (FP) PO PRN (06:06)
[2025-01-15] MEDS: MAG HYDROX/AL HYDROX/SIMETH 30 ML UNIT-DOSE CUP PO PRN (09:30)
[2025-01-15] MEDS: LOPERAMIDE HCL 2 MG CAPSULE PO PRN (11:09)
[2025-01-16] MEDS ORDERED: diphenhydrAMINE HCL 25 MG CAPSULE (FP) PO PRN (10:41)
[2025-01-16 12:29] VITALS: BP 148/77; PULSE 86; RESP 17; TEMP 96.9
== END 2025-01-16 15:19 | disposition home or self-care (01) | DRG 773 ==
LOC: YASAS 11:14 → Y3N 14:32
PROVIDERS: ADMIT Allergy & Immunology; ATTEND Student in an Organized Health Care Education/Training Program
PROC: HZ2ZZZZ Detoxification Services for Substance Abuse Treatment (ICD-10-PCS; principal; 2025-01-13)
DX: F11.23 Opioid dependence with withdrawal (principal); F10.230 Alcohol dependence with withdrawal, uncomplicated; F17.210 Nicotine dependence, cigarettes, uncomplicated; F20.9 Schizophrenia, unspecified; I10 Essential (primary) hypertension
CPT/HCPCS: 36415; 80053; 80307; 85027; 86780; 93005; 93010